=== PATIENT | female | born 1985 | race Caucasian/White ===

== ENCOUNTER 2019-08-07 08:07 | Outpatient (CLI) | payer MEDICAID, SELFPAY ==
--- NOTE | 2019-08-07 09:07 | MM_ITS ---
WS: [id number] DIAGNOSTIC BILATERAL DIGITAL MAMMOGRAM WITH CAD RIGHT breast ultrasound, limited HISTORY: RIGHT BREAST Pain; axillary Lymphadenitis; rt ARM WEAKNESS COMPARISON: None available. TECHNIQUE: Bilateral craniocaudad, mediolateral oblique, and mediolateral views are submitted. Spot c ompression RIGHT MLO was axillary tail. Additional imaging at the RIGHT axilla is attempted. Computer aided detection utilized. Breast composition: There are scattered areas of fibroglandular density. Asymmetry of the breast with the LEFT being smaller. Congenital variation. There is no soft tissue abnormality. No suspicious mas ses or calcifications. Imaging of the LEFT axilla is negative for acute process. There are no nodules . RIGHT breast ultrasound, limited. No abnormality is noted in the RIGHT axilla. Patient directed to the area of pain. There is normal so ft tissue. MM/[place] [id number] IMPRESSION: BI-RADS: 2-Benign FOLLOW UP: 1 Year Follow-up
== END 2019-08-07 08:08 | disposition home or self-care (01) ==
LOC: RADSHAW 08:11
PROVIDERS: Family Provider Nurse Practitioner Family; PCP Family Medicine; Visit Provider Registered Nurse
DX: N64.4 Mastodynia (principal); I88.9 Nonspecific lymphadenitis, unspecified; R53.1 Weakness
CPT/HCPCS: 76641; 77066

== ENCOUNTER → 2020-09-09 12:37 | Outpatient (BNVA) | payer MEDICAID, SELFPAY | PROVIDERS: Family Provider Nurse Practitioner Family; PCP Family Medicine; Visit Provider Nurse Practitioner Family | DX: I42.2 Other hypertrophic cardiomyopathy (principal) | CPT/HCPCS: 80048; 83880; 85025 ==

== ENCOUNTER 2020-09-16 08:12 | Outpatient (CLI) | payer MEDICAID, SELFPAY ==
--- NOTE | 2020-09-16 08:45 | USCV_ITS ---
Gerard Johns Age: 34 Gender: F : 1985 Exam Date: 09/16/2020 08:27 Ordering Phys: Rosemary Erickson Technologist: Deborah Ruiz Exam Location: [facility] [place] Indication: HYPERTROPHIC CARDIOMYOPATHY BP: 107 / 76 HR: 55 Rhythm: Sinus Technical Quality: Adequate MEASUREMENTS (Male / Female) Normal Values 2D ECHO LV Diastolic Diameter PLAX 3.9 cm 4.2 - 5.9 / 3.9 - 5.3 cm LV Systolic Diameter PLAX 2.5 cm IVS Diastolic Thickness 2.2 cm 0.6 - 1.0 / 0.6 - 0.9 cm IVS Systolic Thickness 2.3 cm LVPW Diastolic Thickness 2.0 cm 0.6 - 1.0 / 0.6 - 0.9 cm LVPW Systolic Thickness 2.4 cm LVOT Diameter 2.0 cm LV Ejection Fraction 2D Teich 65.2 % LV Ejection Fraction MOD 2C 49.8 % LV Ejection Fraction 2C AL 59.1 % LA Diameter 4.0 cm LA Width 4.6 cm LA Height 6.8 cm RA Width 4.0 cm RA Height 5.9 cm Aorta at Sinotubular Diameter 2.4 cm M-MODE LV Diastolic Diameter MM 2.5 cm 4.2 - 5.9 / 3.9 - 5.3 cm LV Systolic Diameter MM 2.6 cm LV Ejection Fraction MM Teich -4.0 % IVS Diastolic Thickness MM 2.7 cm 0.6 - 1.0 / 0.6 - 0.9 cm IVS Systolic Thickness MM 2.8 cm LVPW Diastolic Thickness MM 1.7 cm 0.6 - 1.0 / 0.6 - 0.9 cm LVPW Systolic Thickness MM 2.9 cm Aortic Annulus Diameter 3.1 cm LA Ao Ratio MM 1.5 MV E Point Septal Separation 0.2 cm DOPPLER AV Peak Velocity 284.0 cm/s LVOT Peak Velocity 249.0 cm/s AV Area Cont Eq vti 3.1 cm squared AV Area Cont Eq pk 2.9 cm squared MV Area PHT 2.2 cm squared Mitral E to A Ratio 1.9 MV E' Velocity 35.0 cm/s Mitral E to MV E' Ratio 11.6 Mitral E to LV E' Lateral Ratio 11.4 Mitral E to LV E' Septal Ratio 12.0 TR Peak Velocity 382.2 cm/s TR Peak Gradient 58.4 mmHg Right Atrial Pressure 3.0 mmHg Pulmonary Artery Systolic Pressu 61.4 mmHg PV Peak Velocity 136.3 cm/s RV Acceleration Time 0.1 s RV Ejection Time 0.4 s RV AcT/ET 0.2 FINDINGS Left Ventricle Normal left ventricular cavity size. Asymmetric left ventricular wall thickness (IVSd- 2.0, LVPWd-1.5). Normal left ventricular systolic function. Left ventricular ejection fraction is estimated at 70 %. No regional wall motion abnormalities. Grade II diastolic dysfunction, moderately elevated filling pressures. Right Ventricle Normal right ventricular size and systolic function. Right ventricular systolic pressure 35 mmHg. Right Atrium Normal right atrial size. Right atrial pressure estimated at 3 mm Hg. Left Atrium Moderately increased left atrial size. Mitral Valve Moderately thickened myxomatous appearing mitral valve. Systolic anterior motion of anterior mitral valve leaflet. No mitral valve stenosis. Mild posteriorly thickened mitral valve regurgitation. Aortic Valve Structurally normal trileaflet aortic valve. No aortic valve stenosis. Trace aortic valve regurgitation. Peak gradient across left ventricular outflow gradient at rest of 25 mm Hg and with valsalve of 55 mm Hg Tricuspid Valve Structurally normal tricuspid valve. Trace to mild tricuspid valve regurgitation. Pulmonic Valve Structurally normal pulmonic valve. Trace pulmonary valve regurgitation. Pericardium No pericardial effusion. Aorta Normal size aortic root and proximal ascending aorta. Normal sized inferior vena cava with normal respiratoty variations. CONCLUSIONS 1. Normal left ventricular cavity size. Asymmetric left ventricular wall thickness (LVISd- 2.0, LVPWd-1.5). Normal left ventricular systolic function. Left ventricular ejection fraction is estimated at 70 %. No regional wall motion abnormalities. Grade II diastolic dysfunction, moderately elevated filling pressures. 2. Moderately thickened myxomatous appearing mitral valve. Systolic anterior motion of anterior mitral valve leaflet. Mild posteriorly thickened mitral valve regurgitation. 3. Pulmonary artery pressure estimated at 35 mm Hg. 4. Peak gradient across left ventricular outflow gradient at rest of 25 mm Hg and with valsalve of 55 mm Hg 5. These finding may be suggestive of hypertrophic cardiomyopathy. Cardiac MRI is recommneded for further evaluation. Andra Casas MD (Electronically Signed) Final Date: 18 September 2020 21:53 S
== END 2020-09-16 08:13 | disposition home or self-care (01) ==
LOC: US 08:12
PROVIDERS: Family Provider Nurse Practitioner Family; PCP Family Medicine; Visit Provider Nurse Practitioner Family
DX: I42.2 Other hypertrophic cardiomyopathy (principal); I34.0 Nonrheumatic mitral (valve) insufficiency
CPT/HCPCS: 93306

== ENCOUNTER 2021-06-02 14:05 | Emergency (ER) | payer MEDICAID, SELFPAY ==
[2021-06-02 14:24] VITALS: BP 136/75; PULSE 63; RESP 16; TEMP 36.8; O2SAT 98
--- NOTE | 2021-06-02 15:53 | CTR_ITS ---
PROCEDURE INFORMATION: Exam: CT Head Without Contrast Exam date and time: 06/02/2021 3:53 PM Age: 35 years old Clinical indication: Pain; Weakness, extremity; Left; Headache not specified; Patient HX: Lue weakness and headache x6 days TECHNIQUE: Imaging protocol: Computed tomography of the head without contrast. Radiation optimization: All CT scans at this facility use at least one of these dose optimization techniques: automated exposure control; mA and/or kV adjustment per patient size (includes targeted exams where dose is matched to clinical indication); or iterative reconstruction. COMPARISON: CT neck w con* [id number] 03/07/2015 10:36 AM RADIATION DOSE METRICS: Total DLP (mGy-cm): 929.88 FINDINGS: Brain: Normal. No hemorrhage. Unremarkable white matter. No mass effect. Cerebral ventricles: No ventriculomegaly. Paranasal sinuses: There is opacification of the ethmoid and right maxillary sinus. Mastoid air cells: Visualized mastoid air cells are well aerated. Bones/joints: Unremarkable. No acute fracture. Soft tissues: Unremarkable. CT/CT head wo con* [id number] IMPRESSION: Findings are suggestive of sinusitis.Clinical correlation is advised. Radiation Dose CTDIVOL = (mGy): DLP = 929.88 (mGy-cm)
[2021-06-02 16:32] LABS: Basophils # 0.1 10^3/uL (0.0-0.1); Basophils % 0.6 %; Eosinophils # 0.3 10^3/uL (0.0-0.8); Eosinophils % 3.6 %; Hematocrit 39.3 % (37.0-47.0); Hemoglobin 12.5 g/dL (11.5-15.3); Lymphocytes # 1.6 10^3/uL (0.8-4.8); Lymphocytes % 19.3 %; Mean Corpuscular HGB Conc 31.8 g/dL (30.0-36.0); Mean Corpuscular Hemoglobin 27.4 pg (28.0-34.0); Mean Platelet Volume 10.9 fL (7.4-10.4); Monocytes # 0.6 10^3/uL (0.2-0.9); Monocytes % 6.7 %; Neutrophils # 5.79 10^3/uL (1.8-7.7); Neutrophils % 69.4 %; Nucleated Red Blood Cells % 0 %; Platelet Count 254 10^3/cmm (130-400); Red Blood Count 4.57 10^6/uL (4.1-5.3); Red Cell Distribution Width 12.9 % (12.1-15.1); White Blood Count 8.3 10^3/uL (4.0-10.0)
[2021-06-02 17:00] LABS: SARS Covid-2 Antigen Negative (Negative)
[2021-06-02 17:01] LABS: Troponin T (5th) Once 11 ng/L (0-10)
[2021-06-02 17:03] LABS: Alanine Aminotransferase 9 U/L (0-33); Alkaline Phosphatase 69 IU/L (35-105); Anion Gap 15.4 (5-19); Aspartate Amino Transferase 15 U/L (0-32); Blood Urea Nitrogen 16 mg/dL (6-20); Calcium 8.4 mg/dL (8.5-10.5); Carbon Dioxide 22 mmol/L (22-29); Chloride 105 mmol/L (98-107); Globulin 2.3 g/dL (1.3-4.6); Glomerular Filtration Rate 80.7 mL/min (90-130); Glucose 79 mg/dL (65-115); Lipase 23 U/L (13-60); Osmolality Calculated 286 mOsm/kg (285-295); Potassium 4.4 mmol/L (3.5-5.1); Sodium 138 mmol/L (136-145); Total Bilirubin 0.3 mg/dL (0.15-1.2); Total Protein 6.3 g/dL (6.6-8.7)
--- NOTE | 2021-06-02 17:38 | W.ED.GENADLT ---
HPI - General Adult General: Chief complaint: Neuro Symptoms/Deficit Stated complaint: NEURO SX:H/A SAT PM,L HAND NUMBNESS,BLE SLUGGISH Time Seen by Provider: 06/02/21 15:48 History of Present Illness: HPI narrative: 35-year-old female with a history of sarcoidosis, family history of multiple sclerosis presenting to the emergency room with new onset left sided arm heaviness, right facial numbness, and right thigh blurriness. Patient says that 6 days ago she had significant right-sided headache, 5 day ago, she has noticed left arm heaviness has been progressively getting worse. Patient denies any paralysis, reports inability to completely close her right face. In addition, since yesterday, patient has noted also noticed right facial numbness visual blurriness denies any diplopia, acute visual loss, slurring of speech, facial droop, difficulty speaking, difficulty chewing, difficulty swallowing. Patient has no fever or chills, cough or runny nose or sore throat. Patient recently recovered from a cough last week. Onset:6 days ago Duration:6 days Location:home Severity:moderate Review of Systems Narrative: Constitutional: No fever, no chills. HEENT: No vision changes CV: No chest pain, no palpitations PULM: no cough, no dyspnea. +cough last week GI: No abdominal pain, no N/V/D. : No dysuria MSKEL: No muscle pain SKIN: No new rashes, no lesions. NEURO: No headache, no focal weakness. +R facial numbness, +L arm heaviness, +decreased L illustrator set strength HEME: No visible bruises PSYCH: Normal mood PFSH ED PFSH: Medical History Hypertrophic cardiomyopathy Mitral regurgitation Sarcoidosis Severe concentric left ventricular hypertrophy Social History (Updated 10/24/20 @ 14:14 by Nusrat Frederick RN) Smoking and tobacco status: former smoker Alcohol intake: never Physical Exam Narrative: EXAM NARRATIVE: Head: Atraumatic Eyes: PERRL, conjunctiva without injection, 20/40 R eye, 20/20 L eye ENT: Mucous membrane moist NECK: Supple, ROM intact LUNGS: LCTAB, no crackles/rhonchi CV: RRR ABDOMEN: Soft, nontender in all quadrants EXTREMITY: Normal ROM SKIN: No rash or erythema NEURO: Mental status? Awake, alert, and oriented to self, year, month, location, and situation.? Following simple axial and appendicular commands.? Has appropriate fund of knowledge, comprehension, and insight.? Able to recall and understands pertinent aspects of medical history and current treatment status.? ? Language? Speech is fluent without word-finding difficulties.? Intact naming, expression, bilingual medical receptionist, and repetition.? ? Cranial nerves? 2,3,4,6: PERRL, EOMI with no nystagmus. 5: +R sided V1-V3 pressure differentiation only, +LV1-V3 2 point discrimination intact? 7: Smile symmetrical, no facial droop.? 8: Hearing grossly intact.? 9,10: Normal palate movement.? 11: Normal strength in trapezius bilaterally 12: Tongue protrudes midline.? ? Motor examination? Normal bulk & tone. Strength as follows (R/L): Delts (5/5), Biceps (5/5), Triceps (5/5), Wrist ext (5/5), hip flexors (5/5), plantarflexors (5/5), dorsiflexors (5/5). ? Sensation? Light Touch: +Decreased sensation over the L ulnar distribution Romberg: Negative.? Distal joint position sense intact ? Coordination? Cwhydx-gf-brex-finger movements intact without dysmetria or past-pointing.? Rapid fingertaps: preserved amplitude without decriment.? No tremor, myoclonus or truncal ataxia.? ? Gait/stance? Steady, normal narrow base gait with appropriate arm swing and turning.? Tandem gait without hesitation or loss of balance. PSYCH: Normal mood and affect Course Vital Signs: Vital signs: Vital Signs Temperature 98.2 F 06/02/21 14:24 Pulse Rate 61 06/02/21 18:08 Respiratory Rate 15 06/02/21 18:08 Blood Pressure 162/80 06/02/21 18:08 Pulse Oximetry 98 06/02/21 18:08 MDM - General Adult MDM Narrative: Medical decision making narrative: 35 F w/ hx of sarcoidosis not currently on treatment presenting with R facial numbness and L illustrator set strength weakness and L ulnar neuropathy. Findings are concerning for either MS given family hx or neurological sarcoidosis. CT brain negative for any acute findings. WBC of 8.3. Case was discussed with [facility] Neurologist Dr. Gallego with recommendation with follow up with Dr. Scott once she returns from vacation for ouptatient evaluation of neuro sarcoidosis +/- MS with MRI w/wo contrast of head + orbit. Dr. Gallego declined starting patient on medication until diagnosis is established. I have given patient follow up with our rehabilitation caseworker to be seen by Dr. Scott next week after she returns from her vacation. Patient aware of a call from our rehabilitation caseworker to schedule for appointment(s) and verbalizes understanding of the importance of following up. Disposition: Discharge. Patient counseled regarding diagnostic impression, treatment plan. Patient given ED strict return precautions to return for continuation, worsening, or development of new symptoms. Instructed to f/u w/ Dr. Scott regarding symptoms today. Patient verbalized understanding. Lab Data: Labs: Lab Results 06/02/21 06/02/21 06/02/21 16:23 16:23 16:23 WBC 8.3 10^3/uL 10^3/ uL (4.0-10.0) RBC 4.57 10^6/uL 10^6 /uL (4.1-5.3) Hgb 12.5 g/dL g/dL (11.5-15.3) Hct 39.3 % % (37.0-47.0) MCV 86.0 fl fl (81-99) MCH 27.4 pg L pg (28.0-34.0) MCHC 31.8 g/dL g/dL (30.0-36.0) RDW 12.9 % % (12.1-15.1) Plt Count 254 10^3/cmm 10^3 /cmm (130-400) MPV 10.9 fL H fL (7.4-10.4) Neut % (Auto) 69.4 % % Lymph % (Auto) 19.3 % % Nicholas % (Auto) 6.7 % % Eos % (Auto) 3.6 % % Baso % (Auto) 0.6 % % Neut # (Auto) 5.79 10^3/uL 10^3 /uL (1.8-7.7) Lymph # (Auto) 1.6 10^3/uL 10^3/ uL (0.8-4.8) Nicholas # (Auto) 0.6 10^3/uL 10^3/ uL (0.2-0.9) Eos # (Auto) 0.3 10^3/uL 10^3/ uL (0.0-0.8) Baso # (Auto) 0.1 10^3/uL 10^3/ uL (0.0-0.1) Nucleated RBC % (a uto) 0 % % Nucleated RBCs # 0.0 /100WBC /100W BC Sodium 138 mmol/L mmol/L (136-145) Potassium 4.4 mmol/L mmol/L (3.5-5.1) Chloride 105 mmol/L mmol/L (98-107) Carbon Dioxide 22 mmol/L mmol/L (22-29) Anion Gap 15.4 (5-19) BUN 16 mg/dL mg/dL (6-20) Creatinine 0.8 mg/dL mg/dL (0.5-0.9) GFR Calculation 80.7 mL/min L mL/ min (90-130) Glucose 79 mg/dL mg/dL (65-115) Calculated Osmolal ity 286 mOsm/kg mOsm/ kg (285-295) Calcium 8.4 mg/dL L mg/dL (8.5-10.5) Total Bilirubin 0.3 mg/dL mg/dL (0.15-1.2) AST 15 U/L U/L (0-32) ALT 9 U/L U/L (0-33) Alkaline Phosphata se 69 IU/L IU/L (35-105) Troponin T Gen 5 n g/L 11 ng/L H ng/L (0-10) Total Protein 6.3 g/dL L g/dL (6.6-8.7) Albumin 4.0 g/dL g/dL (3.5-5.2) Globulin 2.3 g/dL g/dL (1.3-4.6) Lipase 23 U/L U/L (13-60) Nasal/Oral COVID-1 9 PCR SARS-CoV-2 RNA (RT -PCR) SARS-CoV-2 Ag (Rap id) 06/02/21 06/02/21 06/02/21 16:23 16:23 16:23 WBC RBC Hgb Hct MCV MCH MCHC RDW Plt Count MPV Neut % (Auto) Lymph % (Auto) Nicholas % (Auto) Eos % (Auto) Baso % (Auto) Neut # (Auto) Lymph # (Auto) Nicholas # (Auto) Eos # (Auto) Baso # (Auto) Nucleated RBC % (a uto) Nucleated RBCs # Sodium Potassium Chloride Carbon Dioxide Anion Gap BUN Creatinine GFR Calculation Glucose Calculated Osmolal ity Calcium Total Bilirubin AST ALT Alkaline Phosphata se Troponin T Gen 5 n g/L Total Protein Albumin Globulin Lipase Nasal/Oral COVID-1 9 PCR Cancelled SARS-CoV-2 RNA (RT -PCR) Not detected (NOT DETECTED) SARS-CoV-2 Ag (Rap id) Negative (Negative) Imaging Data^: Other Imaging: Radiologist's impression: [facility] [id number] [place] [id number] Scan ReportSigned Patient: Mallory Johns #: [id number]: 1985Acct#:[id number]/Sex: 35 / FADM Date: 06/02/21Loc: ERRoom/Bed:Attending Dr: Ordering Provider/Ordering MD: Rafi Oshea MD Date of Service: 06/02/21 Procedure(s): CT head wo con* [id number] Accession Number(s): [id number] Report Number: [id number] PROCEDURE INFORMATION: Exam: CT Head Without Contrast Exam date and time: 06/02/2021 3:53 PM Age: 35 years old Clinical indication: Pain; Weakness, extremity; Left; Headache not specified; Patient HX: Lue weakness and headache x6 days TECHNIQUE: Imaging protocol: Computed tomography of the head without contrast. Radiation optimization: All CT scans at this facility use at least one of these dose optimization techniques: automated exposure control; mA and/or kV adjustment per patient size (includes targeted exams where dose is matched to clinical indication); or iterative reconstruction. COMPARISON: CT neck w con* [id number] 03/07/2015 10:36 AM RADIATION DOSE METRICS: Total DLP (mGy-cm): 929.88 FINDINGS: Brain: Normal. No hemorrhage. Unremarkable white matter. No mass effect. Cerebral ventricles: No ventriculomegaly. Paranasal sinuses: There is opacification of the ethmoid and right maxillary sinus. Mastoid air cells: Visualized mastoid air cells are well aerated. Bones/joints: Unremarkable. No acute fracture. Soft tissues: Unremarkable. CT/CT head wo con* [id number] IMPRESSION: Findings are suggestive of sinusitis.Clinical correlation is advised. Radiation Dose CTDIVOL = (mGy): DLP = 929.88 (mGy-cm) Dictated By:Chelsea Trivediigned By:Chelsea Trivedi MDSigned Date/Time:06/02/21 [id number]/ [id number] Discharge Plan Discharge Patient Disposition: Home Clinical Impression: Arm heaviness, Facial numbness Condition: Stable Prescriptions: No Action furosemide 40 mg tablet 40 mg PO DAILY Qty: 90 RF: 1 atenolol 25 mg tablet 25 mg PO DAILY Qty: 90 RF: 3 Discharge Orders: Discharge ED (Routine); Ordered 06/02/21 Ordered By: Rafi Oshea Referrals: Lizzeth Escobar DO [Primary Care Provider] - Discharge Diet: Advance as tolerated Discharge Activity: Resume usual activity Activity Restrictions/Additional Instructions: Our rehabilitation caseworker will have you follow-up with Dr. Scott in the next few days. You would be expected to have a phone call with our rehabilitation caseworker who will put you on the schedule. Come back to the emergency room have any weakness in your arms or legs, difficulty speaking, difficulty chewing, double vision, visual blindness, slurring of speech, facial droop, or any new or concerning neurological symptoms. Coding Level of Care Code ED Evp General Counsel for Les Beck
[2021-06-02 18:08] VITALS: BP 162/80; PULSE 61; RESP 15; O2SAT 98
[2021-06-03 14:47] LABS: Quest SARS-CoV-2 RNA NOT DETECTED (NOT DETECTED)
--- NOTE | 2021-06-05 07:54 | DCPLANNER ---
crm marketing manager had message to schedule a followup appointment for patient with neurology. crm marketing manager emailed patients information to the neurology clinic for review. Patients information will be printed and reviewed. Clinic will call patient with appointment information.
--- NOTE | 2021-06-08 08:25 | DCPLANNER ---
Patient had a follow up appointment scheduled for 06.07.[address] Scott - patient did attend appointment.
== END 2021-06-02 18:09 | disposition home or self-care (01) ==
PROVIDERS: Emergency Provider Emergency Medicine; PCP Family Medicine
DX: R20.0 Anesthesia of skin (principal); Z87.891 Personal history of nicotine dependence; Z20.822 Contact with and (suspected) exposure to COVID-19
CPT/HCPCS: 70450; 80053; 83690; 84484; 85025; 87426; 87635; 99283

== ENCOUNTER → 2021-06-07 09:19 | Outpatient (BNVA) | payer MEDICAID, SELFPAY | PROVIDERS: PCP Family Medicine; Visit Provider Specialist | DX: I42.2 Other hypertrophic cardiomyopathy (principal); G56.22 Lesion of ulnar nerve, left upper limb; R20.0 Anesthesia of skin; R29.898 Other symptoms and signs involving the musculoskeletal system; D86.9 Sarcoidosis, unspecified; R20.2 Paresthesia of skin; G43.711 Chronic migraine without aura, intractable, with status migrainosus | CPT/HCPCS: 99204; 99205 ==

== ENCOUNTER → 2021-07-10 08:30 | Outpatient (BNVA) | payer MEDICAID, SELFPAY | PROVIDERS: PCP Family Medicine; Referring Provider Specialist; Visit Provider Specialist | DX: G56.22 Lesion of ulnar nerve, left upper limb (principal) | CPT/HCPCS: 95907 ==

== ENCOUNTER → 2022-01-12 09:00 | Outpatient (BNVA) | payer MEDICAID, SELFPAY | PROVIDERS: PCP Family Medicine; Visit Provider Internal Medicine Pulmonary Disease | DX: D86.9 Sarcoidosis, unspecified (principal); R06.02 Shortness of breath; I42.2 Other hypertrophic cardiomyopathy; I50.30 Unspecified diastolic (congestive) heart failure | CPT/HCPCS: 36415; 80053; 82164; 82310; 82652; 83970; 85025; 99204 ==

== ENCOUNTER → 2022-01-23 12:26 | Outpatient (BNVA) | payer MEDICAID, SELFPAY | PROVIDERS: PCP Family Medicine; Visit Provider Internal Medicine Cardiovascular Disease | DX: I50.30 Unspecified diastolic (congestive) heart failure (principal); I42.2 Other hypertrophic cardiomyopathy; R00.2 Palpitations | CPT/HCPCS: 99213; 99214 ==

== ENCOUNTER → 2022-01-25 10:11 | Outpatient (BNVA) | payer MEDICAID, SELFPAY | PROVIDERS: PCP Family Medicine; Visit Provider Internal Medicine Cardiovascular Disease | DX: R00.2 Palpitations (principal); I47.1 Supraventricular tachycardia; I44.2 Atrioventricular block, complete | CPT/HCPCS: 93270 ==

== ENCOUNTER 2022-04-30 15:34 | Outpatient (CLI) | payer MEDICAID, SELFPAY ==
--- NOTE | 2022-04-30 16:00 | CT_ITS ---
WS: [id number] CT CHEST WITHOUT INTRAVENOUS CONTRAST HISTORY: sarcoidosis TECHNIQUE: Contiguous 5 mm axial imaging performed on the thorax. Coronal and sagittal reformats are submitted. All CT scans at [facility] use at least one of these dose optimization techniques: automated exposure control; mA and/or kV adjustment per patient size (includes targeted exams where dose is matched to clinical indication); or iterative reconstruction. CONTRAST: None DLP: 717.02 mGy.cm COMPARISON: 10/28/2013 Lungs and central airway: No mass or pulmonary nodules. No significant bronchovascular nodules. No pn eumonia. Pleura: Normal. No pleural effusion. Heart and pericardium: Heart is moderately enlarged. Most significant enlargement is the LEFT heart. No effusion. Mediastinum and adri: There is very difficult to accurately evaluate for adenopathy without IV contra st. There are numerous anterior paratracheal lymph nodes which are not significantly changed in size. Fullness at the hilar regions cannot be adequately evaluated without IV contrast. Suspect there are small lymph nodes in the hilar regions as seen on the prior study from 2013. Vessels: Enlarged pulmonary artery measures 4 cm. This is a new finding since the prior study. Aorta is normal size. Chest wall and lower neck: Mild fullness of the thyroid measuring 2.9 x 2.1 cm along the RIGHT isthmu s. New finding since the prior study. Upper abdomen: New low-attenuation mass in the liver measures 2.0 cm. Background of hepatic steatosis . The gallbladder is contracted. No adrenal mass. Small hiatal hernia. Osseous structures: No destructive process. CT/CT chest wo con [id number] IMPRESSION: 1. Quality and sensitivity of this examination is significantly limited withou t IV contrast. 2. Continued fullness at the hilar regions. Cannot adequately evaluate for any change in the previously described lymphadenopathy without IV contrast. 3. New mild progressive enlargement of the heart. 4. New pulmonary hypertension. Pulmonary artery measures 4 cm. 5. New low-attenuation 2.0 cm mass in the RIGHT lobe of the liver. Recommend f urther evaluation by ultrasound. Dual phase (arterial and portal venous phases) may be necessary for further evaluation also. 6. No pulmonary mass or nodule. 7. New thyroid nodule centered along the RIGHT isthmus. Recommend follow-up ul trasound.
== END 2022-04-30 15:35 | disposition home or self-care (01) ==
LOC: RAD 15:36
PROVIDERS: PCP Family Medicine; Visit Provider Internal Medicine Pulmonary Disease
DX: D86.9 Sarcoidosis, unspecified (principal); I27.20 Pulmonary hypertension, unspecified; R16.0 Hepatomegaly, not elsewhere classified; E04.1 Nontoxic single thyroid nodule
CPT/HCPCS: 71250

== ENCOUNTER → 2022-10-04 11:28 | Outpatient (BNVA) | payer MEDICAID, SELFPAY | PROVIDERS: PCP Family Medicine; Visit Provider Internal Medicine Pulmonary Disease | DX: D86.9 Sarcoidosis, unspecified (principal); R06.02 Shortness of breath; I42.2 Other hypertrophic cardiomyopathy; I50.30 Unspecified diastolic (congestive) heart failure; K76.89 Other specified diseases of liver | CPT/HCPCS: 99214 ==

== ENCOUNTER → 2022-10-11 08:14 | Outpatient (BNVA) | payer MEDICAID, SELFPAY | PROVIDERS: PCP Family Medicine; Visit Provider Nurse Practitioner Family | DX: I42.2 Other hypertrophic cardiomyopathy (principal); R00.1 Bradycardia, unspecified; Z79.82 Long term (current) use of aspirin | CPT/HCPCS: 93005; 99214 ==

== ENCOUNTER 2022-10-31 10:34 | Outpatient (CLI) | payer MEDICAID, SELFPAY ==
--- NOTE | 2022-10-31 11:15 | US_ITS ---
WS: [id number] Abdomen ultrasound, 10/31/2022 Clinical Data: hepatic lesion Comparison: Right upper quadrant ultrasound, 12/19/2016 Findings: The pancreas shows no cyst, pseudocyst or evidence of pancreatitis. The liver shows no cysts, masses or dilated intrahepatic ducts. There is a probable hemangioma in the central portion of the right lobe of the liver. The liver echotexture shows fatty infiltration. The gallbladder has stones. The wall measures 0.3 cm with no pericholecystic fluid. The common bile d uct is 0.4 cm and no intraductal abnormalities are noted. The right kidney is 11.0 cm. No cysts, masses or hydronephrosis is seen. The left kidney is 11.8 cm. No cysts, masses or hydronephrosis is seen. The abdominal aorta is not dilated and the inferior vena cava has normal flow. No vascular abnormalit ies are seen. The spleen measures 14.1 cm and there are no intrasplenic masses or capsular abnormalities. US/US abdomen complete* [id number] Impression: 1. Cholelithiasis. 2. Fatty infiltration of the liver.
== END 2022-10-31 10:35 | disposition home or self-care (01) ==
PROVIDERS: PCP Family Medicine; Visit Provider Internal Medicine Pulmonary Disease
DX: K76.9 Liver disease, unspecified (principal); K80.20 Calculus of gallbladder without cholecystitis without obstruction; K76.0 Fatty (change of) liver, not elsewhere classified
CPT/HCPCS: 76700

== ENCOUNTER 2022-11-01 11:12 | Emergency (ER) | payer MEDICAID, SELFPAY ==
[2022-11-01] VITALS (7 sets, daily range): BP systolic 103–154; BP diastolic 60–86; PULSE 56–60; RESP 15; O2SAT 98–100; BMI 44.4
--- NOTE | 2022-11-01 11:26 | XR_ITS ---
WS: [id number] Right knee, 3 views, 11/01/2022 Clinical Data: Injury to right knee-4 martinez ran into knee Comparison: None. Findings: No fractures or dislocations are seen. The joint spaces are normal. The patella is intact. The soft t issues are unremarkable. XR/XR knee RT 3V* [id number] Impression: Negative right knee.
--- NOTE | 2022-11-01 12:08 | XR_ITS ---
WS: [id number] Right leg including the tibia and fibula, 3 views, 11/01/2022 Clinical Data: pain Comparison: None. Findings: No fractures or dislocations are seen. The tibia and fibula are intact. The soft tissues are normal. XR/XR tibia fibula RT 2V [id number] Impression: Negative for fracture of the right leg.
--- NOTE | 2022-11-01 12:08 | XR_ITS ---
WS: [id number] Right femur and thigh, AP and lateral views, 11/01/2022 Clinical Data: pain Comparison: None. Findings: No fractures or dislocations are seen. The soft tissues are normal. The visualized knee shows no abno rmalities. XR/XR femur RT min 2V* [id number] Impression: Negative right femur and thigh.
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
[2022-11-01 12:54] LABS: Basophils # 0.1 10^3/uL (0.0-0.1); Basophils % 0.7 %; Eosinophils # 0.3 10^3/uL (0.0-0.8); Eosinophils % 3.7 %; Hematocrit 38.6 % (37.0-47.0); Hemoglobin 12.4 g/dL (11.5-15.3); Lymphocytes # 1.3 10^3/uL (0.8-4.8); Lymphocytes % 15.8 %; Mean Corpuscular HGB Conc 32.1 g/dL (30.0-36.0); Mean Corpuscular Hemoglobin 26.8 pg (28.0-34.0); Mean Corpuscular Volume 83.4 fl (81-99); Mean Platelet Volume 11.1 fL (7.4-10.4); Monocytes # 0.4 10^3/uL (0.2-0.9); Monocytes % 5.2 %; Neutrophils # 5.97 10^3/uL (1.8-7.7); Neutrophils % 74.2 %; Nucleated Red Blood Cells % 0 %; Platelet Count 226 10^3/cmm (130-400); Red Blood Count 4.63 10^6/uL (4.1-5.3); Red Cell Distribution Width 12.9 % (12.1-15.1); White Blood Count 8.1 10^3/uL (4.0-10.0)
[2022-11-01 13:10] LABS: Blood Urea Nitrogen 10 mg/dL (6-20); Calcium 9.4 mg/dL (8.5-10.5); Carbon Dioxide 25 mmol/L (22-29); Chloride 101 mmol/L (98-107); Glomerular Filtration Rate 93.6 mL/min (90-130); Glucose 84 mg/dL (65-115); Osmolality Calculated 282 mOsm/kg (285-295); Sodium 137 mmol/L (136-145)
[2022-11-01 13:32] LABS: HCG, Serum Qual Negative (Negative)
[2022-11-01] MEDS: iohexol 350 mg/mL 500 mL Btl (per mL) IV (14:10)
--- NOTE | 2022-11-02 09:54 | DCPLANNER ---
Addendum entered by Jessica Rivers 11/13/22 15:07: Patient had a follow up appointment scheduled with ortho - patient did attend appointment. Addendum entered by Jessica Rivers 11/02/22 12:31: Patient has a follow up appointment scheduled for Monday, November 07, 2022 at 3:[address] Dunlap at ortho. Original Note: reporting manager had message to schedule a follow up appointment for patient with ortho. reporting manager sent patients information to the front office staff at ortho. Patients information will be printed and reviewed. Clinic will call patient with appointment information.
== END 2022-11-01 15:32 | disposition home or self-care (01) ==
PROVIDERS: Emergency Provider Family Medicine; PCP Family Medicine
DX: S80.11XA Contusion of right lower leg, initial encounter (principal); S86.811A Strain of other muscle(s) and tendon(s) at lower leg level, right leg, initial encounter; V09.9XXA Pedestrian injured in unspecified transport accident, initial encounter
CPT/HCPCS: 73552; 73562; 73590; 73706; 80048; 84703; 85025; 99285; E0114; Q9967

== ENCOUNTER → 2022-11-07 15:04 | Outpatient (BNVA) | payer MEDICAID, SELFPAY | PROVIDERS: PCP Family Medicine; Referring Provider Family Medicine; Visit Provider Orthopaedic Surgery | DX: S80.01XA Contusion of right knee, initial encounter (principal); V86.79XA Person on outside of other special all-terrain or other off-road motor vehicles injured in nontraffic accident, initial encounter | CPT/HCPCS: 99203 ==

== ENCOUNTER 2022-11-22 16:41 | Emergency (ER) | payer MEDICAID, SELFPAY ==
[2022-11-22 16:44] VITALS: BP 135/76; PULSE 61; RESP 16; TEMP 36.7; O2SAT 99
--- NOTE | 2022-11-22 17:00 | W.ED.ABDPA2 ---
Documented by User: Bobby Conroy MD 12/03/22 09:20 HPI - Abdominal Pain General: Chief Complaint: Abdominal Pain Stated Complaint: abd pain Time Seen by Provider: 11/22/22 17:00 History of Present Illness: Ms. Johns is a 36-year-old lady with complex past medical history including hypertrophic cardiomyopathy and sarcoidosis presented to the emergency department for abdominal pain. She reports onset of symptoms initially intermittent approximately 2 or 3 weeks ago without known specific provoking event. Since that time has had increasing frequency and intensity of symptoms like a band across her abdomen in the epigastric and right upper quadrant region. Apparently she does have a history of fatty liver or enlarged liver however subsequently PCP labs revealed concern over gallbladder disease. She was supposed to have an outpatient ultrasound however has had worsening symptoms and ultrasound has not been scheduled. She has nausea and vomiting. Moderate to severe intensity pain. Worse symptoms when laying down and eating. Also endorses palpitations and mild chest discomfort. Denies other signs systemic illness. No other specific changes in health, exacerbating, or alleviating factors identified. Onset (ago): week(s) Location: Epigastric and RUQ Severity: moderate Exacerbating factors: eating and other Review of Systems General: Reports: 10 or more systems reviewed and unremarkable except in HPI and below PFSH ED PFSH: Medical History Chest pain Hypertrophic cardiomyopathy Mitral regurgitation Palpitations Sarcoidosis Severe concentric left ventricular hypertrophy Family History Father CAD (coronary artery disease) Mother Diabetes Brother Lung disease Denies family history of Cancer Social History Smoking and tobacco status: never smoked Alcohol intake: never Substance/Drug Use: never Lives independently: Yes Household members: children Housing: House Marital status: Single Number of children: 7 service: No Current occupational status: unemployed Pets and animals: Yes Pets & animals: cat(s), dog(s) and none Pets & animal details: possum Physical Exam Const: COMMON NORMALS: alert GENERAL APPEARANCE: cooperative and well developed HENMT: COMMON NORMALS: normocephalic and atraumatic HEAD & SCALP: normocephalic and atraumatic THROAT: posterior oropharynx normal Eye: COMMON NORMALS: conjunctivae normal CONJUNCTIVA: Yes conjunctivae normal SCLERA: sclerae normal Neck/C-Spine: COMMON NORMALS: supple GENERAL: Yes trachea midline Resp: COMMON NORMALS: clear to auscultation bilaterally EFFORT & INSPECTION: Yes able to speak in complete sentences AUSCULTATION: clear to auscultation bilaterally Cardio: COMMON NORMALS: regular rate and regular rhythm RATE: regular rate RHYTHM: regular rhythm GI: COMMON NORMALS: Soft to palpation PALPATION: Yes Soft to palpation, Yes Tenderness to palpation present (GI), No Guarding due to palpation present (GI) and No Rigid due to palpation Extremity: GENERAL: Yes normal exam except as noted and No edema Neuro: COMMON NORMALS: moves all extremities SENSORIUM/ORIENTATION: Yes alert and No Orientation impaired Psych: COMMON NORMALS: mental status grossly normal and Normal thought process present THOUGHT PROCESS: Normal thought process present Course Vital Signs: Vital signs: Vital Signs Temperature 98.0 F 11/22/22 16:44 Pulse Rate 60 11/22/22 19:51 Respiratory Rate 19 H 11/22/22 18:07 Blood Pressure 121/77 11/22/22 19:51 Pulse Oximetry 98 11/22/22 19:51 Oxygen Delivery Me thod Room Air 11/22/22 16:44 MDM - Abdominal Pain Medical Decision Making 36-year-old lady presenting with abdominal symptoms. Exam as above. Tenderness without evidence of acute surgical abdomen and patient is nontoxic. Labs with no leukocytosis, normal hemoglobin and platelet count. Metabolic panel with elevated T. bili and transaminitis. Urine pending. Hepatic lesion on gallbladder ultrasound though no evidence of acute cholecystitis. Handed off pending CT given laboratory abnormalities. Patient presents with abdominal pain she does have hemangioma I did inform her that she is to follow with her PCP. No other findings she does have gallstones could be having some biliary colic we will get her follow-up with surgery she is return if worsening she does have a UTI will start on antibiotics. Lab Data 11/22/22 17:24 11/22/22 17:24 Labs/Radiology: Radiology Impressions Chest X-Ray 11/22/22 17:21 IMPRESSION: No acute findings. Gallbladder Ultrasound 11/22/22 17:22 IMPRESSION: 1. Rounded hyperechoic liver lesion measuring 2 cm in the right hepatic lobe. This most likely reflects a hemangioma, would recommend CT abdomen with contrast for confirmation. 2. Cholelithiasis without sonographic findings of acute cholecystitis. Abdomen/Pelvis CT 11/22/22 18:18 IMPRESSION: 2 cm liver lesion in the right hepatic lobe compatible with hemangioma. KUB X-Ray 11/22/22 19:10 IMPRESSION: No acute findings. Laboratory Results WBC 7.3 10^3/uL (4.0-10.0) 11/22/22 17: RBC 4.36 10^6/uL (4.1-5.3) 11/22/22 17:24 Hgb 11.8 g/dL (11.5-15.3) 11/22/22 17: Hct 36.5 % (37.0-47.0) L 11/22/22 17: MCV 83.7 fl (81-99) 11/22/22 17: MCH 27.1 pg (28.0-34.0) L 11/22/22 17: MCHC 32.3 g/dL (30.0-36.0) 11/22/22 17: RDW 13.2 % (12.1-15.1) 11/22/22 17: Plt Count 245 10^3/cmm (130-400) 11/22/22 17: MPV 10.7 fL (7.4-10.4) H 11/22/22 17:24 Neut % (Auto) 80.7 % 11/22/22 17:24 Lymph % (Auto) 12.4 % 11/22/22 17:24 [place] % (Auto) 3.8 % 11/22/22 17:24 Eos % (Auto) 2.3 % 11/22/22 17:24 Baso % (Auto) 0.5 % 11/22/22 17:24 Neut # (Auto) 5.90 10^3/uL (1.8-7.7) 11/22/22 17: Lymph # (Auto) 0.9 10^3/uL (0.8-4.8) 11/22/22 17:24 [place] # (Auto) 0.3 10^3/uL (0.2-0.9) 11/22/22 17:24 Eos # (Auto) 0.2 10^3/uL (0.0-0.8) 11/22/22 17:24 Baso # (Auto) 0.0 10^3/uL (0.0-0.1) 11/22/22 17:24 Nucleated RBC % (auto) 0 % 11/22/22 17:24 Nucleated RBCs # 0.0 /100WBC 11/22/22 17:24 Sodium 138 mmol/L (136-145) 11/22/22 17:24 Potassium 3.8 mmol/L (3.5-5.1) 11/22/22 17:24 Chloride 104 mmol/L (98-107) 11/22/22 17:24 Carbon Dioxide 23 mmol/L (22-29) 11/22/22 17:24 Anion Gap 14.8 (5-19) 11/22/22 17:24 BUN 12 mg/dL (6-20) 11/22/22 17:24 Creatinine 0.6 mg/dL (0.5-0.9) 11/22/22 17:24 GFR Calculation 111.9 mL/min (90-130) 11/22/22 17:24 Glucose 88 mg/dL (65-115) 11/22/22 17:24 Calculated Osmolality 285 mOsm/kg (285-295) 11/22/22 17:24 Calcium 9.2 mg/dL (8.5-10.5) 11/22/22 17:24 Magnesium 1.9 mg/dL (1.7-2.3) 11/22/22 17:24 Total Bilirubin 2.9 mg/dL (0.15-1.2) H 11/22/22 17:24 AST 165 U/L (0-32) H 11/22/22 17:24 ALT 110 U/L (0-33) H 11/22/22 17:24 Alkaline Phosphatase 174 U/L (35-105) H 11/22/22 17:24 NT-Pro-B Natriuret Pep 2302 pg/mL (0-125) H 11/22/22 17:24 Total Protein 7.0 g/dL (6.6-8.7) 11/22/22 17:24 Albumin 4.0 g/dL (3.5-5.2) 11/22/22 17:24 Globulin 3.0 g/dL (1.3-4.6) 11/22/22 17:24 Lipase 46 U/L (13-60) 11/22/22 17:24 TSH 0.30 uIU/mL (0.27-4.20) 11/22/22 17:24 HCG, Qual Negative (Negative) 11/22/22 17:24 Urine Color [place] (Yellow) 11/22/22 18:12 Urine Appearance Cloudy (CLEAR) A 11/22/22 18:12 Urine pH 7 (5-7) 11/22/22 18:12 Ur Specific [place] 1.015 (1.005-1.030) 11/22/22 18:12 Urine Protein Neg (Negative) 11/22/22 18:12 Urine Glucose (UA) Norm (Normal) 11/22/22 18:12 Urine Ketones Negative (Negative) 11/22/22 18:12 Urine Blood Trace (Negative) H 11/22/22 18:12 Urine Nitrate Positive (Negative) H 11/22/22 18:12 Urine Bilirubin 1+ (Negative) H 11/22/22 18:12 Urine Urobilinogen 4 mg/dL (Negative) H 11/22/22 18:12 Ur Leukocyte Esterase 1+ (Negative) H 11/22/22 18:12 Urine RBC 5-10 /hpf (0-2) H 11/22/22 18:12 Urine WBC 15-25 /hpf (0-5) H 11/22/22 18:12 Ur Squamous Epith Cells 5-10 /hpf (0-5) H 11/22/22 18:12 Amorphous Sediment Not Reportable 11/22/22 18:12 Urine Bacteria 3+ /hpf (NONE) H 11/22/22 18:12 Urine Mucus 3+ /hpf 11/22/22 18:12 Discharge Plan Discharge Patient Disposition: Home Clinical Impression: Abdominal pain, Acute cystitis Condition: Stable Prescriptions: New hydrocodone-acetaminophen 5-325 mg tablet 1 tab PO Q6H PRN (Reason: pain) Qty: 14 0RF ondansetron 4 mg tablet,disintegrating 4 mg PO Q6H PRN (Reason: nausea and vomiting) Qty: 14 0RF No Action alprazolam [Xanax] 0.5 mg tablet 0.5 mg PO BEDTIME fluoxetine 40 mg capsule 40 mg PO BID ibuprofen 400 mg tablet 400 mg PO Q6H PRN (Reason: Pain) Rexulti 2 mg tablet 2 mg PO BEDTIME atenolol 25 mg tablet 25 mg PO BEDTIME amlodipine 2.5 mg tablet 2.5 mg PO QAM aspirin 81 mg tablet,delayed release (DR/EC) 81 mg PO DAILY Discharge Orders: Discharge ED (Routine); Ordered 11/22/22 Ordered By: Trina Pierre Referrals: Lizzeth Escobar DO [Primary Care Provider] - 1-3 days Discharge Diet: Advance as tolerated Discharge Activity: Resume usual activity Patient Instructions: Urinary Tract Infection in Women (ED), Abdominal Pain (ED), Opioid Safety Coding Level of Care Code ED Net Developer Architect for Chg Fwd Documented by User: Trina Pierre MD 11/22/22 19:23 HPI - Abdominal Pain General: Chief Complaint: Abdominal Pain Stated Complaint: abd pain Time Seen by Provider: 11/22/22 17:00 [facility] ED PFSH: Medical History Chest pain Hypertrophic cardiomyopathy Mitral regurgitation Palpitations Sarcoidosis Severe concentric left ventricular hypertrophy Family History Father CAD (coronary artery disease) Mother Diabetes Brother Lung disease Denies family history of Cancer Social History Smoking and tobacco status: never smoked Alcohol intake: never Substance/Drug Use: never Lives independently: Yes Household members: children Housing: House Marital status: Single Number of children: 7 service: No Current occupational status: unemployed Pets and animals: Yes Pets & animals: cat(s), dog(s) and none Pets & animal details: possum Course Vital Signs: Vital signs: Vital Signs Temperature 98.0 F 11/22/22 16:44 Pulse Rate 60 11/22/22 19:51 Respiratory Rate 19 H 11/22/22 18:07 Blood Pressure 121/77 11/22/22 19:51 Pulse Oximetry 98 11/22/22 19:51 Oxygen Delivery Me thod Room Air 11/22/22 16:44 MDM - Abdominal Pain Medical Decision Making Patient presents with abdominal pain she does have hemangioma I did inform her that she is to follow with her PCP. No other findings she does have gallstones could be having some biliary colic we will get her follow-up with surgery she is return if worsening she does have a UTI will start on antibiotics. Medical Records I reviewed the patient's medical records. Lab Data I reviewed the patient's lab results. 11/22/22 17:24 11/22/22 17:24 Labs/Radiology: Radiology Impressions Chest X-Ray 11/22/22 17:21 IMPRESSION: No acute findings. Gallbladder Ultrasound 11/22/22 17:22 IMPRESSION: 1. Rounded hyperechoic liver lesion measuring 2 cm in the right hepatic lobe. This most likely reflects a hemangioma, would recommend CT abdomen with contrast for confirmation. 2. Cholelithiasis without sonographic findings of acute cholecystitis. Abdomen/Pelvis CT 11/22/22 18:18 IMPRESSION: 2 cm liver lesion in the right hepatic lobe compatible with hemangioma. KUB X-Ray 11/22/22 19:10 IMPRESSION: No acute findings. Laboratory Results WBC 7.3 10^3/uL (4.0-10.0) 11/22/22 17:24 RBC 4.36 10^6/uL (4.1-5.3) 11/22/22 17:24 Hgb 11.8 g/dL (11.5-15.3) 11/22/22 17:24 Hct 36.5 % (37.0-47.0) L 11/22/22 17:24 MCV 83.7 fl (81-99) 11/22/22 17: MCH 27.1 pg (28.0-34.0) L 11/22/22 17: MCHC 32.3 g/dL (30.0-36.0) 11/22/22 17:24 RDW 13.2 % (12.1-15.1) 11/22/22 17:24 Plt Count 245 10^3/cmm (130-400) 11/22/22 17:24 MPV 10.7 fL (7.4-10.4) H 11/22/22 17:24 Neut % (Auto) 80.7 % 11/22/22 17:24 Lymph % (Auto) 12.4 % 11/22/22 17:24 [place] % (Auto) 3.8 % 11/22/22 17:24 Eos % (Auto) 2.3 % 11/22/22 17:24 Baso % (Auto) 0.5 % 11/22/22 17:24 Neut # (Auto) 5.90 10^3/uL (1.8-7.7) 11/22/22 17:24 Lymph # (Auto) 0.9 10^3/uL (0.8-4.8) 11/22/22 17:24 [place] # (Auto) 0.3 10^3/uL (0.2-0.9) 11/22/22 17:24 Eos # (Auto) 0.2 10^3/uL (0.0-0.8) 11/22/22 17: Baso # (Auto) 0.0 10^3/uL (0.0-0.1) 11/22/22 17:24 Nucleated RBC % (auto) 0 % 11/22/22 17: Nucleated RBCs # 0.0 /100WBC 11/22/22 17:24 Sodium 138 mmol/L (136-145) 11/22/22 17:24 Potassium 3.8 mmol/L (3.5-5.1) 11/22/22 17:24 Chloride 104 mmol/L (98-107) 11/22/22 17:24 Carbon Dioxide 23 mmol/L (22-29) 11/22/22 17:24 Anion Gap 14.8 (5-19) 11/22/22 17:24 BUN 12 mg/dL (6-20) 11/22/22 17:24 Creatinine 0.6 mg/dL (0.5-0.9) 11/22/22 17:24 GFR Calculation 111.9 mL/min (90-130) 11/22/22 17:24 Glucose 88 mg/dL (65-115) 11/22/22 17:24 Calculated Osmolality 285 mOsm/kg (285-295) 11/22/22 17:24 Calcium 9.2 mg/dL (8.5-10.5) 11/22/22 17:24 Magnesium 1.9 mg/dL (1.7-2.3) 11/22/22 17:24 Total Bilirubin 2.9 mg/dL (0.15-1.2) H 11/22/22 17:24 AST 165 U/L (0-32) H 11/22/22 17:24 ALT 110 U/L (0-33) H 11/22/22 17:24 Alkaline Phosphatase 174 U/L (35-105) H 11/22/22 17:24 NT-Pro-B Natriuret Pep 2302 pg/mL (0-125) H 11/22/22 17:24 Total Protein 7.0 g/dL (6.6-8.7) 11/22/22 17:24 Albumin 4.0 g/dL (3.5-5.2) 11/22/22 17:24 Globulin 3.0 g/dL (1.3-4.6) 11/22/22 17:24 Lipase 46 U/L (13-60) 11/22/22 17:24 TSH 0.30 uIU/mL (0.27-4.20) 11/22/22 17:24 HCG, Qual Negative (Negative) 11/22/22 17:24 Urine Color [place] (Yellow) 11/22/22 18:12 Urine Appearance Cloudy (CLEAR) A 11/22/22 18:12 Urine pH 7 (5-7) 11/22/22 18:12 Ur Specific [place] 1.015 (1.005-1.030) 11/22/22 18:12 Urine Protein Neg (Negative) 11/22/22 18:12 Urine Glucose (UA) Norm (Normal) 11/22/22 18:12 Urine Ketones Negative (Negative) 11/22/22 18:12 Urine Blood Trace (Negative) H 11/22/22 18:12 Urine Nitrate Positive (Negative) H 11/22/22 18:12 Urine Bilirubin 1+ (Negative) H 11/22/22 18:12 Urine Urobilinogen 4 mg/dL (Negative) H 11/22/22 18:12 Ur Leukocyte Esterase 1+ (Negative) H 11/22/22 18:12 Urine RBC 5-10 /hpf (0-2) H 11/22/22 18:12 Urine WBC 15-25 /hpf (0-5) H 11/22/22 18:12 Ur Squamous Epith Cells 5-10 /hpf (0-5) H 11/22/22 18:12 Amorphous Sediment Not Reportable 11/22/22 18:12 Urine Bacteria 3+ /hpf (NONE) H 11/22/22 18:12 Urine Mucus 3+ /hpf 11/22/22 18:12 Discharge Plan Discharge Patient Disposition: Home Clinical Impression: Abdominal pain, Acute cystitis Condition: Stable Prescriptions: New hydrocodone-acetaminophen 5-325 mg tablet 1 tab PO Q6H PRN (Reason: pain) Qty: 14 0RF ondansetron 4 mg tablet,disintegrating 4 mg PO Q6H PRN (Reason: nausea and vomiting) Qty: 14 0RF No Action alprazolam [Xanax] 0.5 mg tablet 0.5 mg PO BEDTIME fluoxetine 40 mg capsule 40 mg PO BID ibuprofen 400 mg tablet 400 mg PO Q6H PRN (Reason: Pain) Rexulti 2 mg tablet 2 mg PO BEDTIME atenolol 25 mg tablet 25 mg PO BEDTIME amlodipine 2.5 mg tablet 2.5 mg PO QAM aspirin 81 mg tablet,delayed release (DR/EC) 81 mg PO DAILY Discharge Orders: Discharge ED (Routine); Ordered 11/22/22 Ordered By: Trina Pierre Referrals: Lizzeth Escobar DO [Primary Care Provider] - 1-3 days Discharge Diet: Advance as tolerated Discharge Activity: Resume usual activity Patient Instructions: Urinary Tract Infection in Women (ED), Abdominal Pain (ED), Opioid Safety Coding Level of Care Code ED Net Developer Architect for Les Beck
[2022-11-22 17:09] VITALS: BP 189/105; PULSE 63; RESP 13; O2SAT 98
--- NOTE | 2022-11-22 17:21 | XRR_ITS ---
PROCEDURE INFORMATION: Exam: XR Chest Exam date and time: 11/22/2022 5:55 PM Age: 36 years old Clinical indication: Pain; Chest pressure; Prior surgery; Surgery date: 6+ months; Surgery type: Lung; Additional info: Palpitations TECHNIQUE: Imaging protocol: Radiologic exam of the chest. Views: 1 view. COMPARISON: CT chest con [id number] 04/30/2022 4:15 PM FINDINGS: Lungs: Calcified granuloma noted in the left upper lung. No consolidation. Pleural spaces: Unremarkable. No pleural effusion. No pneumothorax. Heart/Mediastinum: Unremarkable. No cardiomegaly. Bones/joints: Unremarkable. XR/XR chest 1V portable [id number] IMPRESSION: No acute findings.
--- NOTE | 2022-11-22 17:22 | ECG_ITS ---
[facility] Test Date: 2022-11-22 Pat Name: Gerard Johns Department: Room: Gender: Female Director Of Security: : 1985 Requested By: Bobby Conroy Order Number: [id number] Germán MD: Andra Casas M.D. Measurements Intervals [place] Rate: 56 P: -19 UT: 166 QRS: -49 QRSD: 121 T: 93 QT: 488 QTc: 472 Interpretive Statements SINUS BRADYCARDIA LEFT ANTERIOR FASCICULAR BLOCK [QRS AXIS <= -45, QR IN I, RS IN II] LEFT VENTRICULAR HYPERTROPHY AND ST-T CHANGE LATERAL MYOCARDIAL INFARCTION , PROBABLY RECENT Compared to ECG 09/23/2014 13:23:04 Left ventricular hypertrophy now present ST (T wave) deviation now present Myocardial infarct finding now present Electronically Signed On 11-22-2022 20:36:17 CDT by Andra Casas M.D. [id number]
--- NOTE | 2022-11-22 17:22 | USR_ITS ---
PROCEDURE INFORMATION: Exam: US Abdomen, Limited; Right Upper Quadrant Exam date and time: 11/22/2022 5:37 PM Age: 36 years old Clinical indication: Abdominal pain; Acute; Additional info: Epigastric and right upper quadrant pain TECHNIQUE: Imaging protocol: Real time ultrasound of the abdomen with image documentation. Limited exam focused on the right upper quadrant. COMPARISON: US abdomen complete* [id number] 10/31/2022 10:56 AM FINDINGS: Liver: There is a rounded hyperechoic liver lesion in the right hepatic lobe measuring 2 cm in size. Gallbladder: 1.5 cm shadowing gallstone noted in the gallbladder. There is no gallbladder wall thickening. Biliary ducts: Normal. No stones. No dilation. Pancreas: Poorly visualized due to overlying soft tissues and bowel gas. Right kidney: The right kidney measures 11.4 cm in length. No mass. No hydronephrosis. US/US gall bladder [id number] IMPRESSION: 1. Rounded hyperechoic liver lesion measuring 2 cm in the right hepatic lobe. This most likely reflects a hemangioma, would recommend CT abdomen with contrast for confirmation. 2. Cholelithiasis without sonographic findings of acute cholecystitis.
[2022-11-22 17:34] LABS: Basophils % 0.5 %; Eosinophils # 0.2 10^3/uL (0.0-0.8); Eosinophils % 2.3 %; Hematocrit 36.5 % (37.0-47.0); Hemoglobin 11.8 g/dL (11.5-15.3); Lymphocytes # 0.9 10^3/uL (0.8-4.8); Lymphocytes % 12.4 %; Mean Corpuscular HGB Conc 32.3 g/dL (30.0-36.0); Mean Corpuscular Hemoglobin 27.1 pg (28.0-34.0); Mean Corpuscular Volume 83.7 fl (81-99); Mean Platelet Volume 10.7 fL (7.4-10.4); Monocytes # 0.3 10^3/uL (0.2-0.9); Monocytes % 3.8 %; Neutrophils % 80.7 %; Nucleated Red Blood Cells % 0 %; Platelet Count 245 10^3/cmm (130-400); Red Blood Count 4.36 10^6/uL (4.1-5.3); Red Cell Distribution Width 13.2 % (12.1-15.1); White Blood Count 7.3 10^3/uL (4.0-10.0)
[2022-11-22] MEDS: ondansetron 2 mg/ML SDV 2 mL 4 MG IVP (17:52)
[2022-11-22] MEDS: fentaNYL 50 mcg/mL INJ 2mL IVP (17:56)
[2022-11-22 18:01] LABS: HCG, Serum Qual Negative (Negative)
[2022-11-22 18:05] LABS: Alanine Aminotransferase 110 U/L (0-33); Alkaline Phosphatase 174 U/L (35-105); Anion Gap 14.8 (5-19); Aspartate Amino Transferase 165 U/L (0-32); Blood Urea Nitrogen 12 mg/dL (6-20); Calcium 9.2 mg/dL (8.5-10.5); Carbon Dioxide 23 mmol/L (22-29); Chloride 104 mmol/L (98-107); Glomerular Filtration Rate 111.9 mL/min (90-130); Glucose 88 mg/dL (65-115); Lipase 46 U/L (13-60); Magnesium 1.9 mg/dL (1.7-2.3); NT Pro B Type Natriuretic Pept 2302 pg/mL (0-125); Osmolality Calculated 285 mOsm/kg (285-295); Potassium 3.8 mmol/L (3.5-5.1); Sodium 138 mmol/L (136-145); Total Bilirubin 2.9 mg/dL (0.15-1.2)
[2022-11-22 18:07] VITALS: BP 138/71; PULSE 54; RESP 19; O2SAT 100
--- NOTE | 2022-11-22 18:18 | CTR_ITS ---
PROCEDURE INFORMATION: Exam: CT Abdomen And Pelvis With Contrast Exam date and time: 11/22/2022 6:39 PM Age: 36 years old Clinical indication: Abdominal pain; Generalized; Prior surgery; Surgery date: 6+ months; Surgery type: Tubal, ; Additional info: Abd pain TECHNIQUE: Imaging protocol: Computed tomography of the abdomen and pelvis with contrast. Radiation optimization: All CT scans at this facility use at least one of these dose optimization techniques: automated exposure control; mA and/or kV adjustment per patient size (includes targeted exams where dose is matched to clinical indication); or iterative reconstruction. Contrast material: OMNI 350; Contrast volume: 100 ml; Contrast route: INTRAVENOUS (IV); REPORTING DATA: Count of CT and Cardiac NM exams in prior 12 months: This patient has received 2 known CTs and 0 known cardiac nuclear medicine studies in the 12 months prior to the current study. COMPARISON: US gall bladder [id number] 11/22/2022 5:37 PM RADIATION DOSE METRICS: Total DLP (mGy-cm): 990 FINDINGS: Liver: There is a 2 cm low-attenuation lesion with some peripheral nodular enhancement in the posterior right hepatic lobe corresponding to finding on ultrasound and compatible with a hemangioma. There is an additional 1.2 cm low-attenuation lesion along the posterior right hepatic border likely an additional hemangioma. Gallbladder and bile ducts: Normal. No calcified stones. No ductal dilation. Pancreas: Normal. No ductal dilation. Spleen: Normal. No splenomegaly. Adrenal glands: Normal. No mass. Kidneys and ureters: Normal. No hydronephrosis. Stomach and bowel: Unremarkable. No obstruction. No mucosal thickening. Appendix: No evidence of appendicitis. Intraperitoneal space: Unremarkable. No free air. No significant fluid collection. Vasculature: Unremarkable. No abdominal aortic aneurysm. Lymph nodes: Unremarkable. No enlarged lymph nodes. Urinary bladder: Unremarkable as visualized. Reproductive: Unremarkable as visualized. Bones/joints: Degenerative disc disease at L5-S1. No acute fracture. Soft tissues: Unremarkable. CT/CT abdomen pelvis w con* [id number] IMPRESSION: 2 cm liver lesion in the right hepatic lobe compatible with hemangioma.
[2022-11-22 18:28] LABS: Add Urine Microscopic? YES; Bilirubin Urine 1+ (Negative); Blood Urine Trace (Negative); Glucose Urine UA Norm (Normal); Ketones Urine Negative (Negative); Leukocyte Esterase Urine 1+ (Negative); Nitrate Urine Positive (Negative); Protein Urine Neg (Negative); Specific Gravity, Urine 1.015 (1.005-1.030); Urine Appearance Cloudy (CLEAR); Urine Color Orange (Yellow); Urobilinogen Urine 4 mg/dL (Negative); pH Urine 7 (5-7)
[2022-11-22 18:29] LABS: Add Urine Culture? Yes; Bacteria Urine 3+ /hpf; Mucus Urine 3+ /hpf; WBC Urine 15-25 /hpf (0-5)
[2022-11-22] MEDS: iohexol 350 mg/mL 500 mL Btl (per mL) IV (18:48)
[2022-11-22] MEDS: cefTRIAXone 1,000 MG in sodium chloride 0.9% (plus) 50 ML 100 MG IV (19:06)
--- NOTE | 2022-11-22 19:10 | XRR_ITS ---
PROCEDURE INFORMATION: Exam: XR Abdomen Exam date and time: 11/22/2022 7:14 PM Age: 36 years old Clinical indication: Abdominal pain; Generalized; Additional info: Abd pain TECHNIQUE: Imaging protocol: Radiologic exam of the abdomen. Views: Frontal supine view of the abdomen. 1 View. COMPARISON: CT abdomen pelvis w con* [id number] 11/22/2022 6:39 PM FINDINGS: Gastrointestinal tract: Normal. No bowel dilation. Organs: Contrast noted within the pelvicaliceal systems and bladder. Bones/joints: Unremarkable. XR/XR KUB [id number] IMPRESSION: No acute findings.
[2022-11-22 19:51] VITALS: BP 121/77; PULSE 60; O2SAT 98
--- NOTE | 2022-11-23 10:18 | PC.NURSE ---
Addendum entered by Jessica Rivers 12/04/22 10:03: technical publications manager received the following message from general surgery regarding follow up appointment: Called patient and she stated she has already had her gallbladder taken out Original Note: Patient seen in the ED and referred to Dr. Cobb for Gallstones. TCM sent message to call pt with an appt.
== END 2022-11-22 19:52 | disposition home or self-care (01) ==
PROVIDERS: Emergency Medicine; Emergency Provider Emergency Medicine; PCP Family Medicine
DX: N30.00 Acute cystitis without hematuria (principal); Z79.82 Long term (current) use of aspirin
CPT/HCPCS: 71045; 74018; 74177; 76705; 80053; 81001; 83690; 83735; 83880; 84443; 84703; 85025; 87077; 87086; 87186; 93005; 96365; 96375; 99285; J0696; J2405; J3010; Q9967

== ENCOUNTER 2022-11-24 13:12 | Emergency (ER) | payer MEDICAID, SELFPAY ==
[2022-11-24] VITALS (9 sets, daily range): BP systolic 96–149; BP diastolic 47–89; PULSE 53–78; RESP 14–16; TEMP 36.6; O2SAT 97–100; BMI 43.5
[2022-11-24 14:22] LABS: Basophils % 0.4 %; Eosinophils # 0.1 10^3/uL (0.0-0.8); Eosinophils % 1.4 %; Hemoglobin 13.2 g/dL (11.5-15.3); Lymphocytes # 0.8 10^3/uL (0.8-4.8); Mean Corpuscular HGB Conc 32.2 g/dL (30.0-36.0); Mean Corpuscular Hemoglobin 26.7 pg (28.0-34.0); Mean Corpuscular Volume 82.8 fl (81-99); Mean Platelet Volume 11.6 fL (7.4-10.4); Monocytes # 0.4 10^3/uL (0.2-0.9); Monocytes % 5.6 %; Neutrophils # 6.48 10^3/uL (1.8-7.7); Neutrophils % 82.3 %; Nucleated Red Blood Cells % 0 %; Platelet Count 266 10^3/cmm (130-400); Red Blood Count 4.95 10^6/uL (4.1-5.3); Red Cell Distribution Width 13.1 % (12.1-15.1); White Blood Count 7.9 10^3/uL (4.0-10.0)
[2022-11-24] MEDS: metoclopramide 5 mg/mL SDV 2 mL 10 MG IVP (14:24)
[2022-11-24] MEDS: fentaNYL 50 mcg/mL INJ 2mL IVP (14:24)
[2022-11-24 14:35] LABS: Alanine Aminotransferase 167 U/L (0-33); Albumin Level 4.5 g/dL (3.5-5.2); Alkaline Phosphatase 261 U/L (35-105); Aspartate Amino Transferase 190 U/L (0-32); Blood Urea Nitrogen 9 mg/dL (6-20); Calcium 8.8 mg/dL (8.5-10.5); Carbon Dioxide 23 mmol/L (22-29); Chloride 102 mmol/L (98-107); Globulin 3.4 g/dL (1.3-4.6); Glomerular Filtration Rate 138.1 mL/min (90-130); Glucose 114 mg/dL (65-115); Osmolality Calculated 286 mOsm/kg (285-295); Sodium 138 mmol/L (136-145); Total Bilirubin 5.5 mg/dL (0.15-1.2); Total Protein 7.9 g/dL (6.6-8.7)
--- NOTE | 2022-11-24 14:57 | W.ED.ABDPA2 ---
HPI - Abdominal Pain General: Chief Complaint: Abdominal Pain Stated Complaint: pain middle abdomen Time Seen by Provider: 11/24/22 13:32 History of Present Illness: Gerard is a 36-year-old female that presents to the emergency department with abdominal pain. She reports onset of symptoms approximately 3 weeks ago and has been intermittent in nature. She did have a sudden increase in her abdominal pain which is epigastric in nature and was evaluated here in the emergency department 2 days ago. She was discharged home with cholelithiasis without cholecystitis and urinary tract infection. She has been taking her antibiotics, narcotics and antiemetic for her complaints. Unfortunately she is no longer tolerating her symptoms with prescribed medications. She denies fever chills. Does report nausea vomiting. Does report palpitations Associated Symptoms: Reports GI cramping, nausea and vomiting; Denies bloating, chills, constipation, diarrhea, dysuria, fever(s), hematochezia and hematuria Review of Systems General: Reports: 10 or more systems reviewed and unremarkable except in HPI and below Const: Denies: fever(s), chills, change in appetite, change in weight, fatigue or malaise Eyes: Denies: change in vision, eye discomfort, eye discharge or eye redness ENMT: Denies: throat pain, enlarged tonsils, odynophagia, hoarseness, ear or mastoid pain, ear discharge, change in hearing, tinnitus, nasal discharge, nasal congestion, post nasal drip or sinus pain Card: Reports: palpitations, dyspnea on exertion and orthopnea; Denies: chest pain, irregular heart rhythm, edema or leg pain with exertion Resp: Denies: dyspnea, productive cough, non-productive cough, wheezing, stridor or chest congestion GI: Reports: abdominal pain, nausea, vomiting and GI cramping; Denies: dysphagia, diarrhea, constipation, bloating or hematochezia : Denies: flank pain, difficulty voiding, dysuria, urinary frequency, urinary urgency, urinary hesitancy, oliguria or hematuria Musc: Denies: neck pain, back pain, extremity pain, joint pain, joint swelling, joint redness, joint warmth or muscle weakness Skin/Breast: Denies: rash, pruritus, erythema, photosensitivity or new lesions Neuro: Denies: headache(s), numbness in extremities, weakness in extremities, sensory changes, lack of coordination, difficulty walking, frequent falls, dizziness, confusion, Slurred speech present, difficulty communicating thoughts, seizure-like activity or involuntary movements Endo: Denies: polyuria, polydipsia or tired all the time Landon/Lymph: Denies: easy bruising or easy bleeding PFSH ED PFSH: Medical History Chest pain Hypertrophic cardiomyopathy Mitral regurgitation Palpitations Sarcoidosis Severe concentric left ventricular hypertrophy Family History Father CAD (coronary artery disease) Mother Diabetes Brother Lung disease Denies family history of Cancer Social History Smoking and tobacco status: never smoked Alcohol intake: never Substance/Drug Use: never Lives independently: Yes Household members: children Housing: House Marital status: Single Number of children: 7 service: No Current occupational status: unemployed Pets and animals: Yes Pets & animals: cat(s), dog(s) and none Pets & animal details: possum Physical Exam Const: COMMON NORMALS: no acute distress, patient oriented x3 and alert GENERAL APPEARANCE: cooperative ORIENTATION/CONSCIOUSNESS: Yes awake, Yes oriented to person, Yes oriented to place and Yes oriented to time HENMT: COMMON NORMALS: normocephalic and atraumatic HEAD & SCALP: normocephalic and atraumatic FACE & SINUS: normal facial exam MOUTH: Normal oral and palatal mucosa present THROAT: posterior oropharynx normal Eye: COMMON NORMALS: Equal, round and reactive pupils present, EOMs intact bilaterally, conjunctivae normal and no scleral icterus GENERAL EYE: appearance normal, both eyes and all related structures ALIGNMENT: Yes alignment normal PERIORBITAL: periorbital findings normal CONJUNCTIVA: Yes conjunctivae normal PUPIL: Yes Equal, round and reactive pupils present Neck/C-Spine: COMMON NORMALS: full ROM GENERAL: Yes normal visual inspection Lymph: LYMPHATIC: no lymphadenopathy noted Chest: COMMONS NORMALS: normal inspection of the chest Breast/axilla inspection: Yes no chest deformity, asymmetry, normal contours, no nodules, masses, tenderness Resp: COMMON NORMALS: normal respiratory effort, No retractions, No use of accessory muscles and clear to auscultation bilaterally EFFORT & INSPECTION: Yes able to speak in complete sentences and Yes symmetric chest movement AUSCULTATION: clear to auscultation bilaterally Cardio: COMMON NORMALS: regular rate, regular rhythm and Peripheral pulses 2+ throughout RATE: regular rate RHYTHM: regular rhythm PERIPHERAL PULSES: Peripheral pulses 2+ throughout OTHER: Reports palpitations but normal sinus rhythm to sinus bradycardia present GI: COMMON NORMALS: Normal to inspection, nondistended, normoactive bowel sounds present, Soft to palpation, non-tender and No hepatosplenomegaly present INSPECTION: Yes normal to inspection AUSCULTATION: Yes normoactive bowel sounds PALPATION: Yes Soft to palpation and Yes No hepatosplenomegaly present RECTAL EXAM: deferred OTHER: Report abdominal pain epigastric in nature Tender to palpation in right upper and epigastrium Extremity: COMMON NORMALS: normal to inspection GENERAL: Yes normal exam except as noted Neuro: COMMON NORMALS: patient oriented x3 SENSORIUM/ORIENTATION: Yes alert, Yes oriented to person, Yes oriented to place and Yes oriented to time CRANIAL NERVES: Yes CN normal except as noted Psych: COMMON NORMALS: mental status grossly normal, Normal thought process present, cooperative, activity/motor behavior normal, denies homicidal ideation and denies suicidal ideation THOUGHT PROCESS: Normal thought process present Skin: COMMON NORMALS: no rashes or lesions noted, no wounds and turgor normal GENERAL SKIN EXAM: no rashes or lesions noted and turgor normal Course Vital Signs: Vital signs: Vital Signs Temperature 97.8 F 11/24/22 13:29 Pulse Rate 78 11/24/22 18:03 Respiratory Rate 15 11/24/22 18:03 Blood Pressure 140/67 11/24/22 18:03 Pulse Oximetry 97 11/24/22 18:03 Oxygen Delivery Me thod Room Air 11/24/22 18:03 MDM - Abdominal Pain Medical Decision Making Was evaluated in the emergency department for ongoing abdominal pain. She underwent a work-up 2 days ago and had an ultrasound and CT abdomen pelvis at that time. Ultrasound revealed cholelithiasis without cholecystitis and a CT revealed a 2 cm lesion consistent with hemangioma on the liver. At that time her bilirubin was 2.9. She was discharged home with cephalexin for UTI, narcotics and antiemetics. At this time she is not tolerating pain in spite of these medications. Today I repeated her labs which revealed a bilirubin of 5.5. I talked with Dr. Cobb at about 1500 and he recommended repeat ultrasound of the gallbladder and MRCP if indicated. If positive for obstructing stone, patient will need to be transferred. She prefers the [facility] system in [place]. EKG completed at 1511. EKG a ventricular rate of 67 beats a minute and a QTc of 474. She does have abnormal T wave inversion but this is chronic in nature and unchanged from previous EKG. She does have a history of hypertrophic cardiomyopathy. Repeat ultrasound revealed no bile duct dilation or definite stone. I talked with Dr. Cobb again who recommended MRCP and then transfer out. I talked with Dr. Cobos, gastroenterology at [facility]. He has agreed that an MRCP definitely needs to be done but since they will be the ultimate treating facility they would prefer to do it there. Transfer center will be reaching out to the hospitalist for admission. Dr. Cobos will see the patient in the morning. Patient was updated on plan and is agreeable with transfer. Patient denies any additional pain at this time. Admitting diagnosis is gallstone pancreatitis Treated with Zosyn prior to discharge/transfer. We will await bed assigned Lab Data 11/24/22 13:40 11/24/22 13:40 Labs/Radiology: Radiology Impressions Gallbladder Ultrasound 11/24/22 15:07 IMPRESSION: 1. Cholelithiasis without sonographic evidence of acute cholecystitis. 2. Unchanged hepatic hemangioma superior Laboratory Results WBC 7.9 10^3/uL (4.0-10.0) 11/24/22 13:40 RBC 4.95 10^6/uL (4.1-5.3) 11/24/22 13:40 Hgb 13.2 g/dL (11.5-15.3) 11/24/22 13:40 Hct 41.0 % (37.0-47.0) 11/24/22 13:40 MCV 82.8 fl (81-99) 11/24/22 13:40 MCH 26.7 pg (28.0-34.0) L 11/24/22 13:40 MCHC 32.2 g/dL (30.0-36.0) 11/24/22 13:40 RDW 13.1 % (12.1-15.1) 11/24/22 13:40 Plt Count 266 10^3/cmm (130-400) 11/24/22 13:40 MPV 11.6 fL (7.4-10.4) H 11/24/22 13:40 Neut % (Auto) 82.3 % 11/24/22 13:40 Lymph % (Auto) 10.0 % 11/24/22 13:40 [place] % (Auto) 5.6 % 11/24/22 13:40 Eos % (Auto) 1.4 % 11/24/22 13:40 Baso % (Auto) 0.4 % 11/24/22 13:40 Neut # (Auto) 6.48 10^3/uL (1.8-7.7) 11/24/22 13:40 Lymph # (Auto) 0.8 10^3/uL (0.8-4.8) 11/24/22 13:40 [place] # (Auto) 0.4 10^3/uL (0.2-0.9) 11/24/22 13:40 Eos # (Auto) 0.1 10^3/uL (0.0-0.8) 11/24/22 13:40 Baso # (Auto) 0.0 10^3/uL (0.0-0.1) 11/24/22 13:40 Nucleated RBC % (auto) 0 % 11/24/22 13:40 Nucleated RBCs # 0.0 /100WBC 11/24/22 13:40 Sodium 138 mmol/L (136-145) 11/24/22 13:40 Potassium 4.0 mmol/L (3.5-5.1) 11/24/22 13:40 Chloride 102 mmol/L (98-107) 11/24/22 13:40 Carbon Dioxide 23 mmol/L (22-29) 11/24/22 13:40 Anion Gap 17.0 (5-19) 11/24/22 13:40 BUN 9 mg/dL (6-20) 11/24/22 13:40 Creatinine 0.5 mg/dL (0.5-0.9) 11/24/22 13:40 GFR Calculation 138.1 mL/min (90-130) H 11/24/22 13:40 Glucose 114 mg/dL (65-115) 11/24/22 13:40 Calculated Osmolality 286 mOsm/kg (285-295) 11/24/22 13:40 Calcium 8.8 mg/dL (8.5-10.5) 11/24/22 13:40 Total Bilirubin 5.5 mg/dL (0.15-1.2) H 11/24/22 13:40 AST 190 U/L (0-32) H 11/24/22 13:40 ALT 167 U/L (0-33) H 11/24/22 13:40 Alkaline Phosphatase 261 U/L (35-105) H 11/24/22 13:40 Troponin T Baseline 14 ng/L (0-10) H 11/24/22 13:40 Troponin T 120 Minute 11.93 ng/L (0-10) H 11/24/22 15:38 Delta Troponin T -2.07 ABS# (0-10) L 11/24/22 15:38 Total Protein 7.9 g/dL (6.6-8.7) 11/24/22 13:40 Albumin 4.5 g/dL (3.5-5.2) 11/24/22 13:40 Globulin 3.4 g/dL (1.3-4.6) 11/24/22 13:40 Lipase > 3721 U/L (13-60) H 11/24/22 13:40 Discharge Plan Discharge Patient Disposition: Transfer to ED Clinical Impression: Abdominal pain, Acute gallstone pancreatitis Condition: Stable Prescriptions: No Action alprazolam [Xanax] 0.5 mg tablet 0.5 mg PO BEDTIME fluoxetine 40 mg capsule 40 mg PO BID ibuprofen 400 mg tablet 400 mg PO Q6H PRN (Reason: Pain) Rexulti 2 mg tablet 2 mg PO BEDTIME atenolol 25 mg tablet 25 mg PO BEDTIME amlodipine 2.5 mg tablet 2.5 mg PO QAM aspirin 81 mg tablet,delayed release (DR/EC) 81 mg PO DAILY hydrocodone-acetaminophen 5-325 mg tablet 1 tab PO Q6H PRN (Reason: pain) Qty: 14 0RF cephalexin 500 mg capsule 500 mg PO TID 7 Days Qty: 21 0RF ondansetron 4 mg tablet,disintegrating 4 mg PO Q6H PRN (Reason: nausea and vomiting) Qty: 14 0RF Referrals: Lizzeth Escobar DO [Primary Care Provider] - Coding Level of Care Code ED Business Administration Program Chair for g Ebony
--- NOTE | 2022-11-24 14:59 | ECG_ITS ---
[facility] Test Date: 2022-11-24 Pat Name: Gerard Johns Department: Room: Gender: Female Engineer Station Mainline: : 1985 Requested By: Dilip Jeffries Order Number: [id number] Germán MD: Andra Casas M.D. Measurements Intervals [place] Rate: 67 P: -16 NC: 164 QRS: -50 QRSD: 124 T: 97 QT: 459 QTc: 485 Interpretive Statements SINUS RHYTHM POSSIBLE RIGHT VENTRICULAR CONDUCTION DELAY [RSR (QR) IN V1/V2] LEFT ANTERIOR FASCICULAR BLOCK [QRS AXIS <= -45, QR IN I, RS IN II] LEFT VENTRICULAR HYPERTROPHY AND ST-T CHANGE [VOLTAGE CRITERIA PLUS ST/T ABNORMALITY] POSSIBLE SEPTAL MYOCARDIAL INFARCTION , OF INDETERMINATE AGE [30 ms Q WAVE IN V1/V2] LATERAL MYOCARDIAL INFARCTION , PROBABLY RECENT Compared to ECG 11/22/2022 17:32:19 Sinus bradycardia no longer present ST (T wave) deviation still present Myocardial infarct finding still present Electronically Signed On 11-24-2022 17:31:48 CDT by Andra Casas M.D. [id number]
--- NOTE | 2022-11-24 15:07 | USR_ITS ---
PROCEDURE INFORMATION: Exam: US Abdomen, Limited; Right Upper Quadrant Exam date and time: 11/24/2022 3:58 PM Age: 36 years old Clinical indication: Abdominal pain; Acute; Patient HX: No change from 2 days ago; Additional info: Abd pain, elevated bili TECHNIQUE: Imaging protocol: Real time ultrasound of the abdomen with image documentation. Limited exam focused on the right upper quadrant. COMPARISON: US gall bladder [id number] 11/22/2022 5:37 PM FINDINGS: Liver: 2.4 x 2 x 2 cm echogenic lesion, consistent with a hemangioma. Gallbladder: Cholelithiasis without gallbladder wall thickening or pericholecystic fluid. Negative sonographic Long's sign, as per the claim approver. Biliary ducts: Normal. No stones. No dilation. Pancreas: Unremarkable as visualized. Right kidney: No mass. No definite stones. No hydronephrosis. US/US gall bladder [id number] IMPRESSION: 1. Cholelithiasis without sonographic evidence of acute cholecystitis. 2. Unchanged hepatic hemangioma superior
[2022-11-24] MEDS: sodium chloride 0.9% 1,000 ML 999 ML IV (15:12)
[2022-11-24 15:38] LABS: Troponin(5th) Baseline 14 ng/L (0-10)
[2022-11-24 16:02] LABS: Troponin 5 2HR 11.93 ng/L (0-10)
[2022-11-24 16:07] LABS: Troponin 5 2HR Delta -2.07 ABS# (0-10)
[2022-11-24] MEDS: fentaNYL 50 mcg/mL INJ 2mL 122.5 MCG IVP (16:46)
[2022-11-24] MEDS: piperacillin-tazobactam 3.375 GM in sodium chloride 0.9% (plus) 50 ML IV (18:54)
[2022-11-24 20:06] LABS: Troponin 5 6HR 11.81 ng/L (0-10)
[2022-11-24 20:07] LABS: Troponin 5 6HR Delta -2.19 ng/L (0-12)
[2022-11-24] MEDS: fentaNYL 50 mcg/mL INJ 2mL 100 MCG IVP (20:35)
--- NOTE | 2022-11-24 21:13 | ECG_ITS ---
[facility] Test Date: 2022-11-24 Pat Name: Gerard Johns Department: Room: Gender: Female Manager Integrated: : 1985 Requested By: Dilip Jeffries Order Number: [id number] Germán MD: Andra Casas M.D. Measurements Intervals [place] Rate: 60 P: -3 MS: 163 QRS: -48 QRSD: 121 T: 103 QT: 479 QTc: 481 Interpretive Statements SINUS RHYTHM POSSIBLE RIGHT VENTRICULAR CONDUCTION DELAY [RSR (QR) IN V1/V2] LEFT ANTERIOR FASCICULAR BLOCK [QRS AXIS <= -45, QR IN I, RS IN II] LEFT VENTRICULAR HYPERTROPHY AND ST-T CHANGE [VOLTAGE CRITERIA PLUS ST/T ABNORMALITY] POSSIBLE SEPTAL MYOCARDIAL INFARCTION , OF INDETERMINATE AGE [30 ms Q WAVE IN V1/V2] LATERAL MYOCARDIAL INFARCTION , PROBABLY RECENT Compared to ECG 11/24/2022 15:11:28 No significant changes Electronically Signed On 11-24-2022 17:33:01 CDT by Andra Casas M.D. [id number]
== END 2022-11-24 22:30 ==
PROVIDERS: Emergency Provider Nurse Practitioner; PCP Family Medicine
DX: K85.10 Biliary acute pancreatitis without necrosis or infection (principal); Z79.82 Long term (current) use of aspirin
CPT/HCPCS: 36415; 76705; 80053; 83690; 84484; 85025; 93005; 96365; 96375; 96376; 99285; J2543; J2765; J3010; J7030

== ENCOUNTER → 2024-12-08 08:58 | Outpatient (BNVA) | payer SELFPAY | DX: Z76.89 Persons encountering health services in other specified circumstances (principal) | CPT/HCPCS: 80053; 80061; 84439; 84443; 84481; 85025 ==